=== PATIENT | female | born 1945 | race Caucasian/White ===

== ENCOUNTER 2017-10-17 00:46 | Emergency (ER) | payer MEDICARE, BC ==
[~2017-10-17] VITALS: Ht 162.6 cm; Wt 74.8 kg
[2017-10-17] VITALS (7 sets, daily range): BP systolic 92–152; BP diastolic 67–87
[2017-10-17] MEDS ORDERED: NKM (00:58)
[2017-10-17 02:01] LABS: KETONES,URINE NEGATIVE (NEGATIVE); NITRITE,URINE NEGATIVE (NEGATIVE); PH,URINE 7 (4.5-8.0); PROTEIN,URINE NEGATIVE (NEGATIVE); UROBILINOGEN,URINE NORMAL MG/DL (0.0-1.0)
[2017-10-17 02:06] LABS: BASOPHILS % (AUTO) 1.3 % (0.0-2.0); EOSINOPHILS % (AUTO) 1.4 % (0.0-3.0); LYMPHOCYTES % (AUTO) 20.6 % (20.0-45.0); MEAN CORPUSCULAR HEMOGLOBIN 31.3 PG (27.0-31.0); MEAN CORPUSCULAR HGB CONC 33.5 G/DL (32.0-36.0); MEAN CORPUSCULAR VOLUME 93 FL (80-99); MEAN PLATELET VOLUME 5.7 FL (6.5-10.1); MONOCYTES % (AUTO) 6.1 % (1.0-10.0); NEUTROPHILS % (AUTO) 70.6 % (45.0-75.0); PLATELET COUNT 483 K/UL (150-450); RED BLOOD COUNT 4.41 M/UL (4.20-5.40); RED CELL DISTRIBUTION WIDTH 11.8 % (11.6-14.8); WHITE BLOOD COUNT 10.7 K/UL (4.8-10.8)
[2017-10-17 02:13] LABS: INR 0.9 (0.9-1.1); PROTHROMBIN TIME 9.4 SEC (9.30-11.50)
[2017-10-17 02:20] LABS: ANION GAP 5 mmol/L (5-15); CALCIUM 9.6 MG/DL (8.5-10.1); CARBON DIOXIDE 31 MMOL/L (21-32); CHLORIDE 103 MMOL/L (98-107); CREATININE 0.8 MG/DL (0.55-1.30); SODIUM 139 MMOL/L (136-145)
[2017-10-17 02:25] LABS: ALANINE AMINOTRANSFERASE 27 U/L (12-78); ALBUMIN/GLOBULIN RATIO 0.8 (1.0-2.7); ASPARTATE AMINO TRANSFERASE 17 U/L (15-37); TOTAL PROTEIN 8.1 G/DL (6.4-8.2)
[2017-10-17 02:33] LABS: APPEARANCE,URINE CLEAR; BACTERIA,URINE FEW /HPF; LEUKOCYTE ESTERASE ,URINE 2+ (NEGATIVE); SQUAMOUS EPITHELIAL CELL,UR FEW /LPF (NONE/OCC); WBC,URINE 15-20 /HPF (0 - 2)
[2017-10-17 02:57] LABS: BACTERIA,URINE FEW /HPF; SQUAMOUS EPITHELIAL CELL,UR FEW /LPF (NONE/OCC); WBC,URINE 15-20 /HPF (0 - 2)
[2017-10-17] MEDS ORDERED: cefTRIAXone 1 GM in NS 55 ML IVPB ONE (03:00)
--- NOTE | 2017-10-17 03:53 | Emergency Room Report ---
History of Present Illness General Chief Complaint: Palpitations Source: Patient, EMS Present Illness HPI Is a 72-year-old female with no past medical history. She's not taking any medication other than vitamins. She called 911 with chief complaint of palpitation. Per EMS on the way here she became confused. She keep asking similar question over and over. Does not know what who called 911. Denies any fever chills denies any chest pain. No shortness of breath. No slurred speech or focal deficit. Allergies: Coded Allergies: No Known Allergies (Unverified , 10/17/17) Patient History Past Medical History: none Past Surgical History: none Pertinent Family History: none Social History: Denies: smoking Now: No Immunizations: other Nursing Documentation-[facility] Past Medical History: No Stated History Review of Systems Eye: Denies: eye pain, blurred vision ENT: Denies: ear pain, nose congestion, throat swelling Respiratory: Denies: cough, shortness of breath Cardiovascular: Denies: chest pain, palpitations Gastrointestinal: Denies: abdominal pain, diarrhea, nausea, vomiting Musculoskeletal: Denies: back pain, joint pain Skin: Denies: rash Neurological: Denies: headache, numbness Endocrine: Denies: increased thirst, increased urine Hematologic/Lymphatic: Denies: easy bruising All Other Systems: negative except mentioned in HPI Physical Exam Vital Signs Date Time Temp Pulse Resp B/P (MAP) Pulse Ox O2 Delivery O2 Flow Rate FiO2 10/17/17 00:53 97.2 88 16 162/96 99 Room Air vitals with high blood p Sp02 EP Interpretation: reviewed, normal General Appearance: well appearing, no apparent distress, alert Head: normocephalic, atraumatic Eyes: bilateral eye PERRL, bilateral eye EOMI ENT: hearing grossly normal, normal pharynx Neck: full range of motion, supple, no meningismus Respiratory: chest non-tender, lungs clear, normal breath sounds Cardiovascular #1: regular rate, rhythm, no murmur Gastrointestinal: normal bowel sounds, non tender, no mass, no organomegaly, no bruit, non-distended Musculoskeletal: back normal, gait/station normal, normal range of motion Neurologic: alert Psychiatric: mood/affect normal Skin: warm/dry Medical Decision Making Diagnostic Impression: Primary Impression: Palpitations Additional Impression: Altered mental status Qualified Codes: R41.82 - Altered mental status, unspecified ER Course Patient presents with palpitations and confusion. No evidence of infection. CT scan unremarkable. Questionable embolic events and she has palpitation. She walked to the bathroom here without any difficulty. She has problem with short-term memory. She keep asking me the same question over and over. Lab Results Impression labs normal EKG Diagnostic Results Rate: normal Rhythm: NSR ST Segments: no acute changes ASA given to the pt in ED: Yes Rhythm Strip Diag. Results Rhythm Strip Time: 03:52 EP Interpretation: yes Rate: 76 Rhythm: NSR, no PVC's, no ectopy Chest X-Ray Diagnostic Results Chest X-Ray Diagnostic Results : Chest X-Ray Ordered: Yes # of Views/Limited/Complete: 1 View Indication: Shortness of Breath EP Interpretation: Yes Interpretation: no consolidation, no effusion, no pneumothorax, no acute cardiopulmonary disease Impression: No acute disease Electronically Signed by: Len Anna MD CT/MRI/US Diagnostic Results CT/MRI/US Diagnostic Results : Imaging Test Ordered: CT head Impression negative per radiologist Last Vital Signs Date Time Temp Pulse Resp B/P (MAP) Pulse Ox O2 Delivery O2 Flow Rate FiO2 10/17/17 02:23 89 14 92/68 100 Room Air 10/17/17 00:53 97.2 Status: unchanged Disposition: ADMITTED INPATIENT Condition: Serious Referrals: NON PHYSICIAN (PCP) LEN ANNA M.D. Oct 17, 2017 03:53
--- NOTE | 2017-10-17 14:42 | Diagnostic Imaging Report ---
Indication: Altered mental status Technique: Continuous helical CT scanning of the head was performed without intravenous contrast material. Axial and coronal 5 mm sections were generated. Radiation dose was minimized using automated exposure control Dose: Total Dose Length Product - DLP routine [address] Dose Index - CTDIvol(s) 70.38 mGy. Comparison: none Findings: The ventricular system is normal in size and configuration for age. There is no shift of midline structures. No abnormal extra-axial fluid collections are noted. There is no evidence of intracerebral bleeding. No other abnormal high or low density areas are noted within the brain. The calvarium is intact. The sinuses are clear. The mastoids are clear. There is incidental finding of a 12 x 5 mm fat attenuation left supraorbital lesion Impression: Negative for acute intracranial bleed or mass effect Incidental finding of small left supraorbital scalp lipoma This agrees with the preliminary interpretation provided overnight by [facility]eradiology service. The CT scanner at [facility] is accredited by the [employer] and the scans are performed using protocols designed to limit radiation exposure to as low as reasonably achievable to attain images of sufficient resolution adequate for diagnostic evaluation.
--- NOTE | 2017-10-17 14:43 | Diagnostic Imaging Report ---
Indication: Reason For Exam: AMS Technique: One view of the chest Comparison: Findings: Lungs and pleural spaces are clear. Heart size is normal. Questionable small calcified granuloma versus calcified breast lesion projects over the right lateral lung base Impression: No acute process
--- NOTE | 2017-10-17 16:43 | Cardiology Report ---
APPROVED REPORT EKG Measurement Heart [id number] Normal sinus rhythm Possible Left atrial enlargement Borderline ECG
--- NOTE | 2017-10-17 22:15 | Consultation ---
DATE OF CONSULTATION: 10/17/2017 NEUROLOGICAL CONSULTATION CONSULTING PHYSICIAN: Hudson Aldana M.D. REQUESTING PHYSICIAN: Faby Eldridge M.D. HISTORY OF PRESENT ILLNESS: This 72-year-old female was seen in neurological consultation to evaluate the new onset of transient amnesia in the setting of palpitation. The patient informed me that in the last couple of days, she feels somewhat fuzzy "cloudy" in her head. So, yesterday, she checked her blood pressure, was 144/80. Later, as she went to bed, she felt some palpitation, but better sleep. She has no recollection of following events and her first clear recollection was at this hospital emergency room in the morning. She has no recollection how she got up yesterday, called 911. She has no recollection of how she was taken to the hospital. The CAT scan was done and other tests were done without her recollection. Currently, she is feeling fairly well. She has no complaints. No headache. No dizziness. No chest pain. No palpitation. According to paramedics, on the way to the emergency room, she was confused. She was asking the same questions repetitiously, and she explained them she did not call 911, but there were no other complaints. On arrival, blood pressure 162/90, respirations 16, heart rate of 88, temperature 97.2, and pulse oximetry 99%. The patient does not appear to be in distress despite being alert and normal affect. EKG, normal sinus rhythm. No acute changes noted. No PVC. No ectopies. Chest x-ray, no consolidation or effusion. No acute cardiopulmonary disease. CAT scan of the brain reported as negative as per Radiology. Lab work was obtained. CBC study was normal except platelets of 133,000. Coagulation panel normal. Urinalysis, 15 to 20 WBCs, 2+ leukocyte esterase. Toxicology panel was negative. Her chemistry panel was unremarkable except BUN of 22 and glucose 129. Since fully awake and seen in the morning until present, she remained stable with no complaints. PAST MEDICAL HISTORY: The patient indicated that few days ago, she was seen by GAME DESIGN INSTRUCTOR after she was found to have some lymph nodes in her armpits and was afraid that she might have developed a breast cancer. This examination was normal. Additional diagnostic studies were ordered. The patient has not been seen by corporate strategy intern for many years. She is not on any treatment. She has seen flow trader for seborrheic dermatitis. She has no history of loss of consciousness, TIA, strokes, or seizure disorder. SOCIAL HISTORY: She is a . Her mother also recently. 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 No alcohol. No drug abuse. She has 2 adult daughters who are present during this exam. FAMILY HISTORY: Her mother suffered from essential tremor. No seizure disorder in the family. REVIEW OF SYMPTOMS: Somewhat foggy head over the last couple of days, palpitation noted in about couple of days. No abdominal pain or discomfort. No urine or bowel incontinence. PHYSICAL EXAMINATION: GENERAL: A well-developed and well-nourished, pleasant lady, not in acute distress. VITAL SIGNS: Now stable. Blood pressure 141/84, temperature 97.2, and heart rate of 74. HEENT: Head, normocephalic. No evidence of trauma. Eyes, ears, and throat are clear. NECK: Supple. No meningeal signs. MUSCULOSKELETAL: Unremarkable. No deformities. Peripheral pulses 1+ symmetric. SKIN: Dermatitis in both upper extremities. MENTAL STATUS: She is fully alert and oriented x3. Speech is fluent. Language is intact. She has retrograde amnesia on events from approximately 10:30 p.m. yesterday until crm specialist. CRANIAL NERVE II: Pupils both responding to light and accommodation. Extraocular movement intact. No nystagmus. CRANIAL NERVE V: Normal corneal responses. CRANIAL NERVE VII: No facial asymmetry. CRANIAL NERVE VIII: Normal hearing. CRANIAL NERVES IX THROUGH XII: Within normal limits. MOTOR EXAMINATION: Revealed normal muscle tone. Strength 5/5 in all extremities. There is a slight action tremor in both hands. Coordination is normal [id number] and heel-troy testing. Deep tendon reflexes 1+ and symmetric. GAIT: Stable. IMPRESSION: 1. Transient global amnesia. Rule out transient ischemic attack, rule out seizure activity. 2. Hypertension. 3. History of palpitation. 4. Mild essential tremor. RECOMMENDATION: Diagnostic studies to include MRI of the brain, carotid duplex, 2D echocardiogram, and electroencephalogram. Laboratory work to include thyroid function, EMMANUELLE, sedimentation rate, B12, folate, vitamin D level, malignancy panel, lipid panel and thyroid panel. The patient to be observed for any paroxysmal events. At this point, the family informed me that they just made arrangement with the [facility] who is willing to accept her transfer. There is no neurological contraindication for such transfer. Thank you for allowing me to see this interesting patient in neurological consultation. Hudson Aldana M.D. DR: TEE JOB#: [id number] CC:
--- NOTE | 2017-10-18 08:30 | History and Physical Report ---
DATE OF ADMISSION: 10/17/2017 HISTORY OF PRESENT ILLNESS: The patient is admitted to the telemetry for altered mental status and confusion. She called 911 for palpitations and does not remember the details and does not remember of exactly what happened, but does remember that palpitations and apparently she called 911. The patient is not coherent at this point. The patient claims that she has a history of blood pressure . The patient is admitted for altered mental status. Denies . Denies nausea, vomiting, or diarrhea. No history of abdominal pain. No shortness of breath. Denies cough. The patient denies abdominal pain. PAST MEDICAL HISTORY: Hypertension. PAST SURGICAL HISTORY: None. MEDICATIONS: None. ALLERGIES: None. FAMILY HISTORY: Noncontributory. REVIEW OF SYSTEMS: HEENT: Denies headaches. RESPIRATORY: Denies shortness of breath. Denies cough. CARDIOVASCULAR: Denies chest pain. GASTROINTESTINAL: Denies nausea, vomiting, or diarrhea. EXTREMITIES: Denies pain. CENTRAL NERVOUS SYSTEM: Denies change in vision or speech pattern. PHYSICAL EXAMINATION: VITAL SIGNS: Temperature 97.2, pulse 79, and blood pressure 146/88. HEENT: PERRLA. NECK: Supple. No lymphadenopathy. CHEST: Clear to auscultation. GASTROINTESTINAL: Soft, nontender, and nondistended. No organomegaly. EXTREMITIES: No edema. Moves all four extremities. NEUROLOGIC: Sensory intact to light touch. Reflexes are equal on both sides. ASSESSMENT: 1. Altered mental status. 2. Palpitations. PLAN: I have asked Dr. Aldana, Dr. Wilkes, as well as to see the patient for the above-mentioned diagnosis and also to rule out any infectious etiology and altered mental status and also to rule out dehydration. Faby Eldridge M.D. DR: JOSAFAT JOB#: [id number] CC:
== END 2017-10-17 12:27 | disposition other institution (70) ==
LOC: EDBD 00:46 → EMR 01:14
DX: R41.82 Altered mental status, unspecified (principal); R00.2 Palpitations; I10 Essential (primary) hypertension
CPT/HCPCS: 36415; 70450; 71010; 80053; 80307; 81003; 82962; 85025; 85610; 85730; 87086; 87181; 93005; 99285; J0696